=== PATIENT | female | born 1980 | race Caucasian/White ===

== ENCOUNTER 2016-12-25 15:22 | Emergency (ER) | payer OTHER ==
[2016-12-25] MEDS ORDERED: diphenhydrAMINE 50 MG/ML 1 ML VIAL IVP STA (16:36)
[2016-12-25] MEDS ORDERED: KETOROLAC 30 MG/ML 1 ML VIAL IVP STA (16:36)
[2016-12-25] MEDS ORDERED: ONDANSETRON 4 MG/2 ML VIAL IVP STA (16:37)
--- NOTE | 2016-12-25 16:58 | CT ---
EXAMINATION TYPE: CT brain wo con DATE OF EXAM: 12/25/2016 4:53 PM COMPARISON: NONE HISTORY: Severe Headache with vomiting CT DLP: 1121 mGycm Automated exposure control for dose reduction was used. FINDINGS: Central structures are midline. There is no evidence of hydrocephalus. No acute focal lesio n, mass effect or midline shift is seen. I do not see evidence of intracranial blood. Visualized portions of the paranasal sinuses and mastoids are clear. No depressed skull fracture is s een. IMPRESSION: NORMAL CT SCAN OF THE BRAIN.
--- NOTE | 2016-12-25 17:03 | ED ---
Headache HPI - General Chief Complaint: Headache Stated Complaint: HEADACHE Time Seen by Provider: 12/25/16 16:30 Source: patient, EMS, RN notes reviewed Mode of arrival: EMS Limitations: no limitations - History of Present Illness Initial Comments: 36-year-old female presents emergency Department with chief complaint of headache. Patient states headaches are around 12:30 and was sudden onset of headache. Patient states she's never had a headache like this in her life. She saw history migraine headaches. Patient states that headache is on the left side. She states she has some light sensitivity. Patient denies any focal weakness. Denies any confusion. Patient states she's been nauseated and vomiting. Patient has not given any medication by EMS. Patient states she did take Tylenol prior arrival with minimal relief. Patient denies fever, chills, neck pain - Related Data Home Medications Medication Instructions Recorded Confirmed Acetaminophen Tab [Tylenol Tab] 500 - 1,000 mg PO Q6HR PRN 12/25/16 12/25/16 Biotin 5 mg PO DAILY 12/25/16 12/25/16 Calcium Carbonate [Calcium] 600 mg PO DAILY 12/25/16 12/25/16 Ferrous Sulfate [Feosol] 325 mg PO DAILY 12/25/16 12/25/16 Multivitamins, Thera [Multivitamin 1 tab PO DAILY 12/25/16 12/25/16 (formulary)] Allergies Allergy/AdvReac Type Severity Reaction Status Date / Time No Known Allergies Allergy Verified 12/25/16 15:38 Review of Systems ROS Statement: Those systems with pertinent positive or pertinent negative responses have been documented in the HPI. ROS Other: All systems not noted in ROS Statement are negative. Past Medical History Past Medical History: No Reported History History of Any Multi-Drug Resistant Organisms: None Reported Additional Past Surgical History / Comment(s): tubes tited in aug 2016, gastric by-pass 2009 Past Psychological History: No Psychological Hx Reported Smoking Status: Never smoker Past Alcohol Use History: Rare Past Drug Use History: None Reported General Exam Limitations: no limitations General appearance: alert, in no apparent distress Head exam: Present: atraumatic, normocephalic, normal inspection Eye exam: Present: normal appearance, PERRL, EOMI. Absent: scleral icterus, conjunctival injection, periorbital swelling ENT exam: Present: normal exam, normal oropharynx, mucous membranes moist, TM's normal bilaterally, normal external ear exam Neck exam: Present: normal inspection, full ROM. Absent: tenderness, meningismus, lymphadenopathy Respiratory exam: Present: normal lung sounds bilaterally. Absent: respiratory distress, wheezes, rales, rhonchi, stridor Cardiovascular Exam: Present: regular rate, normal rhythm, normal heart sounds. Absent: systolic murmur, diastolic murmur, rubs, gallop, clicks Neurological exam: Present: alert, oriented X3, CN II-XII intact, reflexes normal. Absent: motor sensory deficit Skin exam: Present: warm, dry, intact, normal color. Absent: rash Course Vital Signs 12/25/16 12/25/16 15:24 17:24 Temperature 97.5 F L 97.8 F Pulse Rate 55 L 48 L Respiratory 16 18 Rate Blood Pressure 146/75 144/77 O2 Sat by Pulse 100 Oximetry - Reevaluation(s) Reevaluation #1: 12/25/16 17:27 Patient was reevaluated this time. Patient states her headache is resolving. Patient was updated on CT results which show no acute abnormality. Patient will be discharged. Medical Decision Making - Medical Decision Making 36-year-old female presented emergency department for headache. Patient CT showed no acute abnormality. Patient was given medications emergency department and which she states the headache is improved. Patiently discharges time. Patient had a migraine headache. Disposition Clinical Impression: Migraine headache Disposition: HOME SELF-CARE Condition: Stable Instructions: Migraine Headache (ED) Additional Instructions: Please return to the Emergency Department if symptoms worsen or any other concerns. Time of Disposition: 17:28
[2016-12-25 17:57] VITALS: BP 133/63; PULSE 49; RESP 16; TEMP 98.3
== END 2016-12-25 17:55 | disposition home or self-care (01) ==
LOC: EC 15:22
DX: G43.909 Migraine, unspecified, not intractable, without status migrainosus (principal); Z79.899 Other long term (current) drug therapy
CPT/HCPCS: 99284; 96374; 96375 ×2; 70450; J1200; J2405; J1885

== ENCOUNTER → 2019-10-09 | Outpatient (CLI) | payer OTHER ==
--- NOTE | 2019-10-09 22:55 | MR ---
EXAMINATION TYPE: MR hip LT wo con DATE OF EXAM: 10/09/2019 COMPARISON: None. HISTORY: Lt hip pain x 2 years Standard multiplanar, multisequence MRI departmental protocol Multiplanar, multisequence images of the pelvis focus on the left hip were acquired. FINDINGS: Hip joint spaces are symmetric and thought within normal limits. No significant joint effus ions. Femoral head shapes are maintained bilaterally. No significant spurring or subchondral cystic c hange. Bone marrow signal intensity is maintained bilaterally. No suspicious edema. No serpiginous lo w T1 signal to suggest avascular necrosis. No groin adenopathy. No minerva hernias. Muscle bulk symmetrically within normal limits. No suspicious fluid level of the greater trochanters bilaterally. Anteverted uterus is seen. Bladder poorly distended and thus suboptimally evaluated. No concerning codey wel dilatation. No pelvic fluid is present. Sacroiliac joints are maintained. IMPRESSION: No significant findings are seen to account for patient's symptoms of left-sided hip pain .
== END | disposition home or self-care (01) ==
LOC: RADMRIMAIN 19:09
PROVIDERS: ATTEND Orthopaedic Surgery
DX: M25.552 Pain in left hip (principal); M54.5 Low back pain

== ENCOUNTER → 2019-11-08 | Outpatient (CLI) | payer OTHER ==
[2019-11-08 14:06] VITALS: BP 144/87; PULSE 62; RESP 16; TEMP 98; BMI 36.1
--- NOTE | 2019-11-08 14:54 | P.HPBAR ---
Bariatric H&P - History & Physicial H&P Date: 11/08/19 History & Physicial: Visit/CC: Transfer of Care ry 2009 [facility] Patient initial contact: Initial weight: 146.51 kg Initial weight in pounds: 323.00 Height: 5 ft 5 in Initial BMI: 53.7 Last weight: Current weight: 98.656 kg Current weight in pounds: 217.50 Current BMI: 36.1 [place] body weight (based on NIH guidelines): 56.699 kg Excess body weight loss: 53.2% The patient is a 39 year-old F who presents for Bariatric Assessment. HPI: She has a gastric bypass in 2009 in [place], Dr. Akins. Highest weight of 323 pounds. Lowest was 170 pounds. She comes in 218 pounds. She has occassional discomfort with too much sugar. She has food get stuck on occassion. She reports once per year emesis. She is here for follow up. Her last follow up 9 years ago. She reports fatigue. She had children since her surgery. Her protein intake is barely 60 grams. PLAN: 1. Bariatric labs advised 2. Food diary journal 3. Follow up for labs in 2 weeks. Past Medical History Past Medical History: No Reported History Additional Past Medical History / Comment(s): Vitamin D deficient, History of Any Multi-Drug Resistant Organisms: None Reported Past Surgical History: Bariatric Surgery, Orthopedic Surgery Additional Past Surgical History / Comment(s): tubes tied in aug 2016, gastric by-pass 2009 ([facility]) , hemilaminectomy L5-S1 x 2 (initial 1998, repeat December 2018) Past Anesthesia/Blood Transfusion Reactions: No Reported Reaction Past Psychological History: No Psychological Hx Reported Smoking Status: Never smoker Past Alcohol Use History: Rare Past Drug Use History: None Reported - Past Family History Mother Family Medical History: Diabetes Mellitus, Hypertension, Osteoarthritis (OA) Additional Family Medical History / Comment(s): Type 2 DM, Hip replaced, bilateral knee replacement Father Family Medical History: Cancer, Diabetes Mellitus Additional Family Medical History / Comment(s): Type 2 DM, at age 58 from lung cancer (smoker), pigmentosa retitinitis (heriditary eye condition) Sister(s) Additional Family Medical History / Comment(s): pigmentosa retitinitis (heriditary eye condition) Surgical - Exam Vital Signs Temp Pulse Resp BP 98 F 62 16 144/87 11/08/19 14:00 11/08/19 14:00 11/08/19 14:00 11/08/19 14:00 Bariatric Checklist Checklist: Plan: Checklist: EGD: 1. Hiatal hernia: 2. H. Pylori: HgbA1c: Vitamin D: Smoking: Never smoker Primary care physician referral: Elizabeth Matias NP Psychiatry clearance: Cardiology clearance: Sleep study: Diet journal: VTE risk score: VTE risk level: Rehab needs at discharge:
== END ==
LOC: BARWHC3 13:20
PROVIDERS: ATTEND Surgery Plastic and Reconstructive Surgery
DX: Z48.815 Encounter for surgical aftercare following surgery on the digestive system (principal); Z98.84 Bariatric surgery status
CPT/HCPCS: 99211

== ENCOUNTER → 2019-11-15 | Outpatient (CLI) | payer OTHER ==
[2019-11-15 12:42] LABS: HCT 41.9 % (34.0-46.0); HGB 13.2 gm/dL (11.4-16.0); MCH 27.2 pg (25.0-35.0); MCHC 31.4 g/dL (31.0-37.0); MCV 86.7 fL (80.0-100.0); Mean Platelet Volume 7.7; Platelet Count 354 k/uL (150-450); RBC 4.84 m/uL (3.80-5.40); RDW 12.6 % (11.5-15.5); WBC 7.3 k/uL (3.8-10.6)
[2019-11-15 12:45] LABS: INR 0.9 (<1.2); Partial Thromboplastin Time 23.8 sec (22.0-30.0); Prothrombin Time 9.9 sec (9.0-12.0)
[2019-11-15 16:50] LABS: % Iron Saturation 57.01 (12.00-45.00); African American GFR (CKD) 108.4 (60.0-200.0); Albumin 4.4 g/dL (3.80-4.90); Albumin/Globulin Ratio 2.44 (1.60-3.17); Anion Gap 8.7 mmol/L (4.00-12.00); BUN/Creat Ratio 12.5 Ratio (12.00-20.00); Calcium 9.3 mg/dL (8.7-10.3); Carbon Dioxide 25.3 mmol/L (21.6-31.8); Chol/HDL Ratio 3.12; Globulin 1.8 g/dL (1.6-3.3); LDL Cholesterol,Calculated 87.2 mg/dL (0.0-131.0); Magnesium 1.9 mg/dL (1.5-2.4); Non-African American GFR(CKD) 93.5 (60.0-200.0); Phosphorus 3.9 mg/dL (2.4-5.1); Total Bilirubin 0.4 mg/dL (0.3-1.2); Total Protein 6.2 g/dL (6.2-8.2); VLDL Calculation 20.8 mg/dL (5.00-40.00)
[2019-11-15 16:56] LABS: Ferritin 28.7 ng/mL (10.0-291.0)
[2019-11-15 17:14] LABS: Hemoglobin A1C 5.3 % (4.0-6.0)
[2019-11-15 17:57] LABS: Folate, Serum 13.5 ng/mL
[2019-11-16 14:51] LABS: Zinc, Serum 76 ug/dL (60-130)
[2019-11-17 07:46] LABS: Vitamin A 59 ug/dL (38-106)
[2019-11-17 10:47] LABS: Vit B1(Thiamine) 70 ug/L (38-122)
== END | disposition home or self-care (01) ==
LOC: LABWHC1 11:55
PROVIDERS: ATTEND Surgery Plastic and Reconstructive Surgery
DX: E66.01 Morbid (severe) obesity due to excess calories (principal); E21.1 Secondary hyperparathyroidism, not elsewhere classified; E89.1 Postprocedural hypoinsulinemia; D50.9 Iron deficiency anemia, unspecified; K90.9 Intestinal malabsorption, unspecified; E55.9 Vitamin D deficiency, unspecified; K74.1 Hepatic sclerosis; N19 Unspecified kidney failure; K50.90 Crohn's disease, unspecified, without complications
CPT/HCPCS: 36415; 80053; 80061; 82306; 82525; 82607; 82728; 82746; 83036; 83540; 83550; 83735; 83970; 84100; 84134; 84255; 84425; 84443; 84590; 84630; 85027; 85610; 85730

== ENCOUNTER → 2024-03-22 | Outpatient (CLI) | payer OTHER ==
--- NOTE | 2024-03-27 14:10 | MM ---
Reason for Exam: Screening (asymptomatic). Baseline mammogram. Patient History: Menarche at age 14. First Full-Term at age 32. Late child-bearing (after 30). Patient has history of breast feeding. Patient used Hormonal Contraceptives for 1 year. Last menstrual period: 03/09/2024 Risk Values: Sienna 5 year model risk: 1.0%. NCI Lifetime model risk: 13.2%. Prior Study Comparison: Patient's first Mammogram. Tissue Density: There are scattered areas of fibroglandular density. Findings: Analyzed By CAD. Right breast: There is no suspicious group of microcalcifications or new suspicious mass. Left breast: There is no suspicious group of microcalcifications or new suspicious mass. Overall Assessment: Negative, BI-RAD 1 Management: Screening Mammogram of both breasts in [address] [facility] will attempt to contact patient to return for supplemental views and ultrasound if indicated. Patient should continue monthly self-breast exams. A clinical breast exam by your physician is recommended on an annual basis. This exam should not preclude additional follow-up of suspicious palpable abnormalities. Note on Sienna scores and lifetime risk: 1. A Sienna score greater than 3% is considered moderate risk. If this is the case, consider specialist referral to assess eligibility for a risk reducing agent. 2. If overall lifetime risk for the development of breast cancer is 20% or higher, the patient may qualify for future screening with alternating mammogram and breast MRI. Electronically signed and approved by: Nima Crocker DO
== END | disposition home or self-care (01) ==
LOC: RADMAMWWP 12:03
PROVIDERS: ATTEND Internal Medicine Geriatric Medicine
DX: Z12.31 Encounter for screening mammogram for malignant neoplasm of breast (principal); Z92.0 Personal history of contraception
CPT/HCPCS: 77063; 77067

== ENCOUNTER → 2025-04-25 | Outpatient (CLI) | payer OTHER ==
--- NOTE | 2025-04-26 08:05 | MM ---
Reason for Exam: Screening (asymptomatic). Last mammogram was performed 1 year(s) and 1 month(s) ago. Patient History: Menarche at age 14. First Full-Term at age 32. Late child-bearing (after 30). Patient has history of breast feeding. Patient used Hormonal Contraceptives for 1 year. Risk Values: Sienna 5 year model risk: 1.1%. NCI Lifetime model risk: 13.1%. Prior Study Comparison: 03/22/2024 Bilateral MG 3D screening mammo w/cad, [facility]. Tissue Density: The breasts are heterogeneously dense, which may obscure small masses. Findings: Analyzed By CAD. There is no suspicious group of microcalcifications or new suspicious mass in either breast. Benign appearing calcifications. Overall Assessment: Benign, BI-RAD 2 Management: Screening Mammogram of both breasts in 1 year. . Patient should continue monthly self-breast exams. A clinical breast exam by your physician is recommended on an annual basis. This exam should not preclude additional follow-up of suspicious palpable abnormalities. Note on Sienna scores and lifetime risk: 1. A Sienna score greater than 3% is considered moderate risk. If this is the case, consider specialist referral to assess eligibility for a risk reducing agent. 2. If overall lifetime risk for the development of breast cancer is 20% or higher, the patient may qualify for future screening with alternating mammogram and breast MRI. [facility], , 04/26/2025 8:02 AM. Electronically signed and approved by: Cornelius Hanson M.D. Radiologis
== END | disposition home or self-care (01) ==
LOC: RADMAMWWP 15:24
PROVIDERS: ATTEND Internal Medicine Geriatric Medicine
DX: Z12.31 Encounter for screening mammogram for malignant neoplasm of breast (principal); R92.333 Mammographic heterogeneous density, bilateral breasts; Z92.0 Personal history of contraception
CPT/HCPCS: 77063; 77067